=== PATIENT | male | born 1960 | race American Indian/Alaskan Native ===

== ENCOUNTER 2017-12-19 09:22 | Emergency (ER) | payer MEDICARE ==
[~2017-12-19] VITALS: Ht 177.8 cm; Wt 104.3 kg
[~2017-12-19 09:22] MED LIST: ALPR1 PO; HYDACE10B PO; HYDR1TAB94 PO; Prednisone20 MG PO; SOMA350 MG PO
[2017-12-19] MEDS ORDERED: Ultram50 MG PO (11:07)
== END 2017-12-19 11:10 | disposition home or self-care (01) ==
LOC: ER 09:22
DX: M25.511 Pain in right shoulder (principal); Z87.891 Personal history of nicotine dependence
CPT/HCPCS: 73030; 99283-25

== ENCOUNTER 2018-11-11 21:24 | Emergency (ER) | payer MEDICARE ==
[~2018-11-11] VITALS: Ht 180.3 cm; Wt 102.1 kg
[~2018-11-11 21:24] MED LIST changes: +Ultram50 MG PO
[2018-11-11] MEDS ORDERED: Norco 5-325 Ta1 EACH PO (22:33)
[2018-11-11] MEDS ORDERED: IBUP600 PO (22:33)
== END 2018-11-11 23:01 | disposition home or self-care (01) ==
LOC: ER 21:24
DX: S76.322A Laceration of muscle, fascia and tendon of the posterior muscle group at thigh level, left thigh, initial encounter (principal); Z87.891 Personal history of nicotine dependence; W20.8XXA Other cause of strike by thrown, projected or falling object, initial encounter; Y92.481 Parking lot as the place of occurrence of the external cause
CPT/HCPCS: 73552; 99284-25

== ENCOUNTER → 2021-11-23 | Outpatient (CLI) | payer MEDICARE ==
[~2021-11-23] MED LIST changes: +IBUP600 PO; +Norco 5-325 Ta1 EACH PO
[2021-11-23 12:00] LABS: BASOPHILS ABSOLUTE AUTO 0.08 K/mm3 (0.00-0.23); BASOPHILS PERCENT AUTO 1 % (0-2); EOSINOPHILS ABSOLUTE AUTO 0.19 K/mm3 (0.00-0.68); EOSINOPHILS PERCENT AUTO 2 % (0-6); Hematocrit 50.3 % (37.0-53.0); IMMATURE GRAN ABSOLUTE AUTO 0.03 K/mm3 (0.00-0.10); IMMATURE GRAN PERCENT AUTO 0 % (0-1); LYMPHOCYTES PERCENT AUTO 25 % (21-46); MONOCYTES ABSOLUTE AUTO 0.89 K/mm3 (0.16-1.47); MONOCYTES PERCENT AUTO 10 % (4-13); Mean Corpuscular HGB 30.5 pg (26.0-34.0); Mean Corpuscular HGB Conc 33.8 g/dL (31.5-36.5); Mean Corpuscular Volume 90 fL (80-100); Mean Platelet Volume 9.2 fL (9.1-12.4); NEUTROPHILS ABSOLUTE AUTO 5.28 K/mm3 (1.96-9.15); NEUTROPHILS PERCENT AUTO 61 % (41-73); Platelet Count 263 K/mm3 (150-400); RDW Coefficient Variation 13.4 % (11.7-14.2); RDW Standard Deviation 44.5 fL (35.1-46.3); Red Blood Cell Count 5.57 M/mm3 (4.30-5.90); White Blood Cell Count 8.67 K/mm3 (4.00-11.30)
[2021-11-23 12:09] LABS: Albumin, Blood 4.1 g/dL (3.4-5.0); Bilirubin, Total 0.5 mg/dL (0.1-1.0); Calcium, Blood 9.5 mg/dL (8.5-10.1); Creatinine, Blood 0.87 mg/dL (0.60-1.20); Globulin, Blood 4.1 g/dL (2.2-4.0); Potassium, Blood 4.7 mmol/L (3.5-5.5); Total Protein, Blood 8.2 g/dL (6.4-8.2)
== END | disposition home or self-care (01) ==
LOC: LAB 11:56 → LAB SHORT 11:56
PROVIDERS: Family Medicine
DX: M79.10 Myalgia, unspecified site (principal)
CPT/HCPCS: 80053; 82550; 85025

== ENCOUNTER 2024-02-26 06:05 | Day surgery (SDC) | payer MEDICARE ==
[2024-02-26] VITALS (10 sets, daily range): BP systolic 92–150; BP diastolic 54–99
[~2024-02-26] VITALS: Ht 177.8 cm; Wt 102.6 kg
[2024-02-26] MEDS ORDERED: CeFAZolin Sodium 2,000 MG in NS 100 ML IV SCH (06:15)
[2024-02-26] MEDS ORDERED: Lactated Ringer's 1,000 ML IV SCH (06:15)
[2024-02-26] MEDS ORDERED: Sugammadex Sodium 200 MG/2ML SDV (100 MG/ML) ONE (06:39)
[2024-02-26] MEDS ORDERED: Rocuronium Bromide 10 MG/ML 5ML Injection IV ONE (06:39)
[2024-02-26] MEDS ORDERED: Dexamethasone Sod Phos 10 MG/ML 1ML VIAL ONE (06:39)
[2024-02-26] MEDS ORDERED: HYDROmorphone HCl/Pf 1MG SYR ONE (06:39)
[2024-02-26] MEDS ORDERED: Ondansetron HCl 2 MG / ML 2ML Vial ONE (06:39)
[2024-02-26] MEDS ORDERED: Metoclopramide HCl 5MG / ML 2ML Vial ONE (06:39)
[2024-02-26] MEDS ORDERED: Ketorolac Tromethamine 30mg Vial ONE (06:39)
[2024-02-26] MEDS ORDERED: propofoL 100 ML IV ONE (06:43)
[2024-02-26] MEDS ORDERED: CeFAZolin Sodium 2,000 MG VIAL ONE (06:57)
--- NOTE | 2024-02-26 07:04 | NUR ---
History, Chart, Medications and Allergies reviewed before start of procedure. Pre-Op teaching done. Pt verbalizes understanding. Patient confirms NPO status and agrees with scheduled surgery. PT BELONGINGS BAG PLACED UNDER GURNEY. PT UNABLE TO REMOVE BRACELET ON L WRIST. [facility] REFUS[employer] PAPERWORK SIGNED.
[2024-02-26] MEDS ORDERED: Acetaminophen 500 MG Tab PO SCH (07:05)
[2024-02-26] MEDS ORDERED: Bupivacaine 0.5% HCl 5 MG/ML 30MLVIAL ONE (07:07)
[2024-02-26] MEDS ORDERED: Phenylephrine HCl 100 MCG/ML-NS 10MLSYR (1MG/10ML) ONE (07:49)
[2024-02-26] MEDS ORDERED: HydrALAZINE HCl 20 MG / ML 1ML Vial ONE (08:05)
[2024-02-26] MEDS ORDERED: Albuterol 2.5 MG/3 ML VIAL ONE (09:03)
[2024-02-26] MEDS ORDERED: propofoL 40 ML IV ONE (09:11)
[2024-02-26] MEDS ORDERED: propofoL 20 ML IV ONE ×2 (10:00→10:16)
[2024-02-26] MEDS ORDERED: FentaNYL Citrate 50 MCG/ML 2 ML Injection ONE (10:19)
[2024-02-26] MEDS ORDERED: OxyCODONE 5 mg/Acetamin 325 mg TABLET PO PRN (11:00)
--- NOTE | 2024-02-26 12:12 | NUR ---
Discharge instructions reviewed with patient. Patient verbalizes understanding. Copy given to patient to take home. Prescription placed in discharge folder. dressings X4 c/d/i. Patient States Post-Procedure ride home has been arranged. Discharged via wheelchair to private car for ride home.
== END 2024-02-26 12:00 | disposition home or self-care (01) ==
LOC: ORSCMMR 06:05 → ORD 07:30 → ORSCMMR 12:00
DX: K40.00 Bilateral inguinal hernia, with obstruction, without gangrene, not specified as recurrent (principal); K41.20 Bilateral femoral hernia, without obstruction or gangrene, not specified as recurrent; D17.6 Benign lipomatous neoplasm of spermatic cord; K66.0 Peritoneal adhesions (postprocedural) (postinfection); E78.5 Hyperlipidemia, unspecified; Z87.891 Personal history of nicotine dependence; E66.9 Obesity, unspecified; Z68.32 Body mass index [BMI] 32.0-32.9, adult
CPT/HCPCS: A9270; C1781; J0360; J0690; J1100; J1171; J1885; J2371; J2405; J2704; J2765; J3010; J7120